=== PATIENT | male | born 1990 | race Caucasian/White ===

== ENCOUNTER 2016-12-11 14:52 | Inpatient (IN) | payer MEDICAID ==
[2016-12-11] MEDS ORDERED: NS 1,000 ML IV ONE ×2 (14:56→15:50)
--- NOTE | 2016-12-11 15:00 | EDPHY ---
H & P HPI/ROS: HPI CHIEF COMPLAINT: Full trauma activation, hanging, CPR HISTORY OF PRESENT ILLNESS: This patient 26-year-old male significant past medical history for depression, daily alcohol use, presents emergency room by EMS as a full trauma alert the patient hung himself. Unclear exactly how long he was hanging it is up to 12 minutes. When EMS arrived they found him pulseless and apneic. They did brief period of CPR he had return of spontaneous circulation and breathing. He now presents emergency room in a cervical collar on a backboard, he smells of alcohol he is alert and oriented he does follow commands he is a GCS 15. He denies pain anywhere. According to EMS patient was hung with a electrical cord. Past Medical History: Depression, alcohol use, lower extremity cellulitis Past Surgical History: No recent surgery Social History: Daily alcohol use Family History: Unknown ROS REVIEW OF SYSTEMS: Review of systems somewhat limited due the patient's clinical presentation intoxicated, and hanging. Exam [place] smells of alcohol, tearful, triage nursing summary reviewed, vital signs reviewed, awake/alert. Eyes normal conjunctivae and sclera, EOMI, PERRLA. HENT Head/neck: Head is atraumatic, neck exam in cervical collar however I do not appreciate any swelling or strangulation Elvis, do not appreciate electrical cord marker redness the neck. No stridor. Trachea nontender. Trachea midline. normal inspection, atraumatic, moist mucus membranes, no epistaxis, neck supple/ no meningismus, no raccoon eyes. Respiratory clear to auscultation bilaterally, normal breath sounds, no respiratory distress, no wheezing. Cardiovascular tachycardic, regular rhythm, no murmur, no edema, distal pulses normal. Gastrointestinal soft, non-tender, no rebound, no guarding, normal bowel sounds, no distension, no pulsatile mass. Genitourinary no CVA tenderness. Musculoskeletal no midline vertebral tenderness, full range of motion, no calf swelling, no tenderness of extremities, no meningismus, good pulses, neurovascularly intact. Skin pink, warm, & dry, no rash, skin atraumatic. Neurologic awake, alert and oriented x 3, AAOx3, moves all 4 extremities equally, motor intact, sensory intact, CN II-XII intact, normal cerebellar, normal vision, normal speech. Psychiatric normal mood/affect. Heme/Lymph/Immune no lymphadenopathy. Differential Diagnosis: Includes but is not limited to in a particular order cardiopulmonary arrest from asphyxiation from hanging, neck injury, a suicide attempt, hypoxic injury, alcohol intoxication, drug intoxication Medical Decision Making: Plan for this patient CT head, CT cervical spine, chest x-ray, full vehicle monitor technician, EKG, drug screen, alcohol level, M1 hold Re-evaluation: CT scan of the head without IV contrast . The results of the study are negative for acute abnormality The study was read by Dr. Godfrey I viewed the images myself on the PACS system. CT scan of the angiogram neck The results of the study are negative for acute vascular injury or tracheal injury or spinal injury. The study was read by Dr. Godfrey . I viewed the images myself on the PACS system. EKG interpretation by me on record in [facility] system. Impression time of EKG 15 18, sinus rhythm rate of 89. No acute ischemic change. 1546: This patient remains hemodynamically stable. In terms of his hanging injury there is no significant neck injury. Patient admitted to the ICU as he did have a cardiopulmonary arrest for 12 minutes. Received CPR. Return of spontaneous circulation. Patient be admitted to the ICU for observation overnight. He is on M1 hold. At this time is hemodynamically stable no acute distress. No significant traumatic injury. Dr. Persaud has agreed to admit the patient Source: Patient, Police, EMS - Personal History Tetanus Vaccine Date: 2011 - Medical/Surgical History Hx Asthma: No Hx Chronic Respiratory Disease: No Hx Diabetes: No Hx Cardiac Disease: No Hx Renal Disease: No Hx Cirrhosis: No Hx Alcoholism: No Hx HIV/AIDS: No Hx Splenectomy or Spleen Trauma: No Other PMH: Hep C. - Social History Smoking Status: Current every day smoker Constitutional: Initial Vital Signs Temperature (C) 36.8 C 12/11/16 16:10 Heart Rate 110 H 12/11/16 16:10 Respiratory Rate 18 12/11/16 16:10 Blood Pressure 148/78 H 12/11/16 16:10 O2 Sat (%) 96 12/11/16 16:10 Allergies/Adverse Reactions: cephalexin monohydrate [From Keflex] Allergy (Severe, Verified 12/11/16 17:00) throat swells Home Medications: Medication Instructions Recorded NK [No Known Home Meds] 12/11/16 Medical Decision Making - Data Points Laboratory Results: Laboratory Results 12/11/16 14:55 12/11/16 14:55 Medications Given: Discontinued Medications Acetaminophen (Tylenol 650/20.3ml Oral Liquid) 650 mg PO Q4HRS PRN PRN Reason: Pain, Mild/Fever, Can Take PO Stop: 06/09/17 16:24 Last Admin: 12/12/16 09:54 Dose: 650 mg Sodium Chloride (Ns) 1,000 mls @ 0 mls/hr IV ONCE ONE; Wide Open PRN Reason: Protocol Stop: 12/11/16 14:57 Last Admin: 12/11/16 14:56 Dose: 1,000 mls Sodium Chloride (Ns) 1,000 mls @ 0 mls/hr IV ONCE ONE PRN Reason: Wide Open Stop: 12/11/16 15:51 Last Admin: 12/11/16 16:06 Dose: 1,000 mls Ibuprofen (Motrin) 800 mg PO Q8HRS PRN PRN Reason: Pain, Breakthrough Stop: 06/09/17 21:59 Last Admin: 12/11/16 21:41 Dose: 800 mg Lorazepam (Ativan) 1 mg PO Q4 PRN PRN Reason: Anxiety, Able to Take PO Stop: 06/09/17 16:27 Last Admin: 12/12/16 15:54 Dose: 1 mg Nicotine (Nicoderm Cq) 21 mg TD DAILY PETE Stop: 06/09/17 17:14 Last Admin: 12/12/16 09:53 Dose: 21 mg Departure - Departure Disposition: [facility] Inpatient Acute Clinical Impression: Cardiopulmonary arrest Hanging Qualifiers: Encounter type: initial encounter Qualified Code(s): T71.164A - Asphyxiation due to hanging, undetermined, initial encounter Condition: Fair
[2016-12-11] MEDS ORDERED: IOPAMIDOL (ISOVUE 370) 100 ML BTL IV ONE (15:05)
[2016-12-11 15:11] LABS: % IMMATURE GRANULYOCYTES 0.3 % (0.0-1.1); ABSOLUTE IMMATURE GRANULOCYTES 0.02 10^3/uL (0.00-0.10); ADD DIFF? NO; ADD MORPH? NO; ADD SCAN? NO; ATYPICAL LYMPHOCYTE FLAG 30 (0-99); FRAGMENT RBC FLAG 0 (0-99); HEMATOCRIT 43.7 % (40.0-51.0); HEMOGLOBIN 15.6 g/dL (13.7-17.5); LEFT SHIFT FLG 0 (0-99); LIPEMIA HEMOLYSIS FLAG 90 (0-99); MEAN CELL HEMOGLOBIN CONCENTR. 35.7 g/dL (32.4-36.7); MEAN CELL VOLUME 92.4 fL (81.5-99.8); MEAN PLATELET VOLUME 9.7 fL (8.7-11.7); PLATELET CLUMPS FLAG 10 (0-99); PLATELET COUNT 182 10^3/uL (150-400); RED BLOOD CELL COUNT 4.73 10^6/uL (4.40-6.38); RED CELL DISTRIBUTION WIDTH 12.1 % (11.5-15.2)
--- NOTE | 2016-12-11 15:20 | CPEKG ---
Heart Rate: 89 RR Interval: 674 P-R Interval: 164 QRSD Interval: 96 QT Interval: 392 QTC Interval: 477 P Davison: 61 QRS Davison: 54 T Wave Davison: 52 EKG Severity - BORDERLINE ECG - EKG Impression: SINUS RHYTHM EKG Impression: BORDERLINE PROLONGED QT INTERVAL Electronically Signed By: Jacek Mckeon 11-Dec-2016 22:45:09
[2016-12-11 15:33] LABS: ANION GAP 16 mEq/L (8-16); CALCIUM 8.9 mg/dL (8.5-10.4); CARBON DIOXIDE 18 mEq/l (22-31); CHLORIDE 112 mEq/L (97-110); CREATININE 0.9 mg/dL (0.7-1.3); ETHANOL SERUM 264 mg/dL (0-10); GLOMERULAR FILTRATION RATE > 60; GLUCOSE 103 mg/dL (70-100); SALICYLATE < 1.0 mg/dL (2.0-20.0); SODIUM 146 mEq/L (134-144)
[2016-12-11 16:13] LABS: COLOR COLORLESS; LEUKOCYTE ESTERASE,URINE NEGATIVE (NEGATIVE); NITRITE,URINE NEGATIVE (NEGATIVE)
[2016-12-11] MEDS ORDERED: ONDANSETRON 4 MG/2 ML VIAL IVP PRN (16:25)
[2016-12-11] MEDS ORDERED: IBUPROFEN 800 MG TAB PO PRN (16:25)
[2016-12-11 16:32] VITALS: O2SAT 96
[2016-12-11] MEDS: LORazepam 1 MG TAB PO PRN ×2 (17:02→20:32)
[2016-12-11] MEDS: NICOTINE 21 MG/24 HR PATCH TD SCH (17:08)
[2016-12-11 18:27] LABS: INR 1.04 (0.83-1.16); PROTIME(PATIENT) 13.5 SEC (12.0-15.0)
[2016-12-11] MEDS: ACETAMINOPHEN 650 MG/20.3 ML UDCUP PO PRN (20:58)
--- NOTE | 2016-12-11 21:58 | GCON ---
[f rep st] CONSULTATION REASON FOR ADMISSION: Hanging. HISTORY OF PRESENT ILLNESS: A 26-year-old, healthy male, found hanging from an electrical cord over the [place] [address] this afternoon. He was allegedly down for approximately 12 minutes before E MS was able to relieve him from his noose. He was initially noted to be asystolic. He received 12 mechanical chest compressions with return of spontaneous rhythm. The patient was brought [facility] in full spinal precautions. The patient smells of alcohol. He is conversive. He is mo ving all 4 extremities well. PAST MEDICAL HISTORY: Denies. PAST SURGICAL HISTORY: Denies. MEDICATIONS: Denies. ALLERGIES: Keflex. SOCIAL HISTORY: Unclear. FAMILY HISTORY: Unclear. REVIEW OF SYSTEMS: Unclear. PHYSICAL EXAMINATION: PRIMARY SURVEY: ABC intact. SECONDARY SURVEY: Pupils are equally round and reactive to light and accommodation. Extraocular muscles are intact. Pupils are noninjected. Rig ht tympanic membrane clear with external canal hyperemia. Normal left tympanic membrane. No facial trauma, step-offs, or deformities. NECK: Cervical collar in place. Trachea midline without crepi tus. No notable hanging associated abrasions or lacerations. 2+ carotid pulses without bruits. HE ART: Regular without murmurs. LUNGS: Clear bilaterally. ABDOMEN: Soft, nontender. CHEST: Ches t wall is nontender. PELVIS: Nontender. EXTREMITIES: Bilateral upper and lower extremities with multiple superficial abrasions in various stages of healing. BACK: Thoracic and lumbar spines nont myrna. NEURO: Patient is moving all extremities well. He is conversive. He smells of alcohol. H e is answering questions appropriately. LABORATORY AND X-RAY DATA: CT head: Without acute injury. CT neck: Normal carotid arteries. Nor mal cervical spine. Chest x-ray: Right apical or pleural parenchymal opacity. No pneumothorax not ed. No mediastinal widening. A 12-lead EKG with normal sinus rhythm and approximately 80 beats per minute. IMPRESSION: 1. Self-inflicted hanging. 2. Alcohol intoxication. 3. Momentary cardiac arrest. PLAN: 1. Patient is being admitted for overnight observation with an M1 hold. The patient's cervical spi ne was clinically cleared. 2. The patient will remain on telemetry for the evening given his cardiopulmonary arrest. Assuming no further overnight events develop, the patient will be cleared for further psychiatric treatment as appropriate. The patient's mother has been notified of the injuries. Care plan was reviewed wit h emergency room physician customer service correspondence clerk. /[id number]/MODL
[2016-12-12] MEDS ORDERED: CALCIUM CARBONATE 500 MG CHEWABLE TAB PO ONE (00:26)
[2016-12-12] MEDS: LORazepam 1 MG TAB PO PRN ×4 (01:27→15:54)
[2016-12-12] MEDS: NICOTINE 21 MG/24 HR PATCH TD SCH (09:53)
[2016-12-12] MEDS: ACETAMINOPHEN 650 MG/20.3 ML UDCUP PO PRN (09:54)
--- NOTE | 2016-12-12 14:04 | GCON ---
[f rep st] CONSULTATION PULMONARY/CRITICAL CARE CONSULTATION. DATE OF CONSULTATION: 12/11/2016 REFERRING PHYSICIAN: Madi Persaud MD REASON FOR REFERRAL: Evaluation and management of hyponatremia and metabolic acidosis status post h anging. HISTORY: Patient is a 26-year-old, healthy male, who was found hanging from an electrical cord near [place] this afternoon. He was apparently down for several minutes before EMS was able to bring him down. He was initially asystolic and received a brief course of chest compressions wit h return of spontaneous rhythm. He was brought to the emergency department where he was alert and c onversive and he currently has some mild neck discomfort but denies any other symptoms. PAST MEDICAL HISTORY: 1. Depression. 2. Alcoholism. MEDICATIONS: None. ALLERGIES: Keflex. SOCIAL HISTORY: Daily alcohol use. FAMILY HISTORY: Unknown. REVIEW OF SYSTEMS: A 10-point review of systems adds nothing to the history of present illness. PHYSICAL EXAMINATION: GENERAL: The patient is awake, alert, in no acute distress. VITAL SIGNS: B lood pressure is 148/78 with a heart rate of 110. He is afebrile. Oxygen saturations are 96% on ro om air. HEENT: Normocephalic and atraumatic. No icterus. NECK: He has some erythema around his n venita, more so on the right. He has no palpable masses or hematoma and has just mild tenderness. His trachea is midline with a grossly intact larynx. There was no adenopathy. CHEST: Clear to auscult ation. CARDIAC: Regular rate and rhythm without murmur. ABDOMEN: Soft, nontender. Bowel sounds ar e present. EXTREMITIES: No clubbing, cyanosis, or edema. NEURO: The patient is awake, alert, and oriented. He has no gross sensory or motor deficits. LABORATORY: Sodium is 146 down from 147, carbon dioxide level is 18, glucose is 113, CBC is normal. Alcohol level is 264. A chest x-ray shows a faint right apical density, images reviewed. A CT of the neck shows no evidence of any vascular damage. ASSESSMENT: 1. Status post hanging. The patient had a brief cardiac arrest but has now recovered with stable vi summer signs. 2. Hyponatremia. This is mild and could be related to dehydration. 3. Metabolic acidosis. This is likely due to the patient's brief arrest. 4. Pulmonary infiltrate. This is quite mild and is not associated with significant hypoxemia. RECOMMENDATIONS: 1. Continue IV fluids, which will likely help to correct his hyponatremia and metabolic acidosis. 2. Follow infiltrate with a chest x-ray prior to discharge. /[id number]/MODL
[2016-12-12] MEDS ORDERED: NICOTINE 21 MG/24 HR PATCH TD SCH (17:00)
[2016-12-12 18:14] VITALS: BP 132/63; PULSE 71; RESP 18; TEMP 98.6
--- NOTE | 2016-12-13 09:35 | TRAUMAPN ---
Assessment/Plan: 26-year-old male hospital day 2. Status post near hanging This morning continues to do well and remains hemodynamically stable. Other than some soft tissue pain around the neck, the patient has no complaints. On tertiary exam, I see no other signs of injury including no swelling and/or abrasions even to the neck area and no petechial hemorrhages. At this point time, the patient is medically cleared for psych evaluation and transfer if necessary. Subjective: Other than neck pain, patient has no complaints Objective: Vital Signs Temp Pulse Resp BP Pulse Ox 37.0 C 71 18 132/63 H 96 12/12/16 17:48 12/12/16 17:48 12/12/16 17:48 12/12/16 17:48 12/12/16 17:48 12/12/16 12/13/16 12/14/16 05:59 05:59 05:59 Intake Total 5120 1000 Output Total 400 Balance 4720 1000 PT 13.5 SEC (12.0-15.0) 12/11/16 14:55 INR 1.04 (0.83-1.16) 12/11/16 14:55 Physical Exam - Physical Exam General Appearance: WD/WN, alert, no apparent distress EENT: PERRL/EOMI, normal ENT inspection, pharynx normal, TMs normal Neck: non-tender, full range of motion, supple, normal inspection Respiratory: chest non-tender, lungs clear, normal breath sounds Cardiac/Chest: normal peripheral pulses, regular rate, rhythm Abdomen: normal bowel sounds, non-tender, soft Back: Normal inspection Skin: normal color, warm/dry Lymphatic: no adenopathy Neuro/Psych: no motor/sensory deficits, alert, normal mood/affect, oriented x 3 , other (Flat affect)
== END 2016-12-12 18:47 | DRG 922 ==
LOC: EDUNIT# → EEVIPCON 14:52 → F2N 16:16
PROVIDERS: ADMIT Surgery; ATTEND Surgery
DX: T71.162A Asphyxiation due to hanging, intentional self-harm, initial encounter (principal); F10.129 Alcohol abuse with intoxication, unspecified; I46.9 Cardiac arrest, cause unspecified; E87.1 Hypo-osmolality and hyponatremia; E87.2 Acidosis
CPT/HCPCS: 80305; 82947-QW; G0480; Q9967

== ENCOUNTER 2016-12-12 19:10 | Inpatient (IN) | payer MEDICAID ==
[2016-12-12] MEDS ORDERED: MAGNESIUM HYDROXIDE 30 ML UDCUP PO PRN (20:11)
[2016-12-12] MEDS ORDERED: ACETAMINOPHEN 325 MG TAB PO PRN (20:11)
[2016-12-12] MEDS ORDERED: MAG HYDROX/AL HYDROX/SIMETH 30 ML UDCUP PO PRN (20:11)
[2016-12-12] MEDS: LORazepam 0.5 MG TAB PO PRN (20:22)
[2016-12-13] MEDS: LORazepam 0.5 MG TAB PO PRN ×3 (08:16→21:10)
[2016-12-13] MEDS: NICOTINE POLACRILEX 2 MG GUM B PRN ×5 (12:09→21:10)
--- NOTE | 2016-12-13 15:01 | GCON ---
[f rep st] CONSULTATION INTERNAL MEDICINE CONSULTATION DATE OF CONSULTATION: 12/13/2016 REASON FOR CONSULTATION: Medical clearance for inpatient psychiatric treatment. HISTORY OF PRESENT ILLNESS: This is a 26-year-old male who was actually admitted to [facility] under the trauma service 12/11 and 12/12. Apparently, he was found hanging from a tree an d had a brief cardiac arrest. He was found to be asystolic initially and was revived with 12 chest compressions. He also was intoxicated with alcohol. He was watched overnight in the ICU, had no co mplications and was sent to inpatient behavioral rehab. The patient is currently feeling well overa ll. He does have a little bit of neck pain. He denies any palpitations, chest pain, shortness of b reath. REVIEW OF SYSTEMS: 10-point review of systems was obtained and other than stated above was negative . PAST MEDICAL HISTORY: None. MEDICATIONS: Reviewed. SOCIAL HISTORY: He does drink alcohol. FAMILY HISTORY: Reviewed. Noncontributory. PHYSICAL EXAMINATION: VITAL SIGNS: Afebrile. Blood pressure is 127/85. Heart rate 91. Oxygen sa turation is 98% in room air. GENERAL: Patient is in no apparent distress. HEENT: Nonicteric scle nandini. Extraocular muscles intact. Moist mucous membranes. NECK: Supple. No thyromegaly. LUNGS: Good effort. Clear to auscultation bilaterally. CARDIOVASCULAR: Regular rate and rhythm. No mur murs, rubs, or gallops. ABDOMEN: Positive bowel sounds. Soft, nontender, and nondistended. No he patosplenomegaly. EXTREMITIES: No clubbing, cyanosis, or edema. SKIN: Without rash. Warm, dry, intact. NEURO: Alert and oriented x3. Moving all 4 extremities equally. PSYCH: Normal mood. Fl at affect. LABORATORIES: CBC yesterday was normal. Chemistry did show a slight elevation of his sodium at 146 , but that was immediately after CPR. Tox screen was positive for alcohol. ASSESSMENT: This is a 26-year-old male admitted for a suicide attempt. PLAN: 1. Suicide attempt due to hanging, with a brief cardiac arrest. Patient was monitored overnight an d he is doing well. There is no further intervention to be done. 2. He is medically cleared to be treated at [facility]. /[id number]/MODL
--- NOTE | 2016-12-13 21:09 | SOAPPROG ---
SOAP Progress Note Assessment/Plan: Assessment: Plan: Objective: Vital Signs Temp Pulse Resp BP Pulse Ox 36.4 C 91 16 127/85 H 98 12/13/16 06:20 12/13/16 06:20 12/13/16 06:20 12/13/16 06:20 12/13/16 06:20 ICD10 Worksheet Patient Problems: Problems Problem Status Onset Alcohol dependence Active Depression - Depressive disorder Active Cardiopulmonary arrest Acute Cellulitis Acute Hanging Acute
[2016-12-13] MEDS: NICOTINE 21 MG/24 HR PATCH TD SCH (21:57)
--- NOTE | 2016-12-14 00:02 | BAPA ---
[f rep st] ADMISSION PSYCHIATRIC ASSESSMENT DATE OF SERVICE: 12/13/2016 CHIEF COMPLAINT: "[place]I guess they cut me down." HISTORY OF PRESENT ILLNESS: The patient is a 26-year-old, single, male, initially admitted to [facility] ICU trauma service on 12/11/16 following a near- lethal suicide attempt by hanging. Apparently hikers found him [place] and contacted EMS. Duration of hanging was unclear but he was reportedly initially noted to be asystolic and have suffered a brief cardiac arrest, and was revived with 12 chest compressions. He was also noted intoxicated with alcohol with alcohol level of 0.256. He was monitored overnight in the ICU, had no complications, and was admitted to inpatient psychiatry on 12/12/2016 on a 72 -hour mental health hold after medical clearance and evaluation by [facility] in the ICU. Initial psychiatric evaluation in ICU indicated the patient had recently become homeless and unemployed, having been evicted from [facility] in [place], [place] 6 days ago due to not paying rent. He had also resumed drinking. Thereafter he returned to [place] and had been living on the streets. Family attempted to not be enabling again, as such patterns of behavior had occurred before. Upon collateral interview, mother and brother stated patient left a well-written suicide note stating very clearly that he was planning to , that he was sorry, and that he loves them. Family also stated the patient was initially upset that he did not . They are very relieved he did not . Apparently patient wrote the suicide note while sober, and researched ways to kill himself. He reported feeling suicidal for a couple of days prior to attempt, but waited until he received his last paycheck, needing money to purchase what he needed for the suicide attempt, and wanted to spend his last day enjoying the day including going swimming. He admits drinking significantly more than usual, about 10 beers...because I knew what I was going to do" and didn't want to feel any discomfort. He states he thought [place]. Patient reports that initially when coming to after the hanging attempt that his first thoughts were "what the F*$%is happening," as he noted commotion around him as he was cut down, then reported being in/out of consciousness, but later felt "excited that I wasn't ....the whole thing was traumatic....I was happy to see my mom and that I didn't ." Although mother and brother stated that patient initially told them that he was upset that he did not , patient.reports he does not feel that way now and is glad to be alive. He hopes to have his mother be involved with his discharge plan and hopes to live with her after discharge. He would like to get reconnected with [facility], but is concerned that he will not be able to see his same previous providers, and does feel frustrated that he has to relate his whole story and history again to several people each time he gets reconnected with [facility]. Patient admits having had problems with alcohol, but does not feel ready to completely abstain, noting that drinking helps his "anxiety, socialization, mood...it's something I enjoy doing", and he feels it would be difficult to maintain long-term sobriety. He reports most recently, sobriety was for 1 month after taking Vivitrol IM several months ago from [facility]. Prior to this, he reports 5 months sobriety at a residential treatment program in [place] "which was a terrible program". He does report chronic depression since age 16, on and off, as well as alcohol use. He does feel that his depression and anxiety are improved when he drinks alcohol. He feels his "primary issue is depression," but, then seems to contradict and reports, "I don't normally feel depressed, I think it's situational," and that he doesn't really think he wants to restart on medications for mood or sobriety. Feels he's been several times through same cycle and nothing seems to be helpful. He admits having trouble managing money , which contributes to poor choices and nonpayment of rent, eventually resulting in housing loss and homelessness, as recently. 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 Ideally, would like to travel with work. Regarding alcohol, "I don't want to give that up...it 's how I lived my life for the last 10 years, it's fun, it helps me feel happier and less anxious." He denied any clear history of manic symptoms and denied history of decreased need for sleep. Denied history of periods of elevated mood or irritability associated with any decreased need for sleep. Denied racing thoughts, rather periods of perseverative thoughts but not racing. Recently sleep had been increased from midnight to 2 p.m. and working from 3 p.m. to 11 p.m. This cycle has also not been very conducive for feeling satisfied with his life. Patient denied any psychotic symptoms or history of such. PAST PSYCHIATRIC HISTORY: Patient reports a long history of depression on and off since age 16. Most recently he was in treatment with [facility], last prescriptions written in 06/2016. He has received inpatient treatment for alcoholism as well as depression, most recent psychiatric hospitalization at age 21 following self-inflicted wrist laceration. Also history of inpatient psych following overdose on Aspirin medication at around age 16 and 17, both requiring medical intervention prior to psychiatric treatment. Patient is noted to have multiple old horizontal scars on bilateral forearms, he states these were from a single suicide attempt by wrist lacerations. States his longest psychiatric hospitalization was at age 16 for 1 month at [facility], "after the state remanded me from my mom's control." He reports having been on many different psychiatric medications, including mood stabilizers, antidepressants, and also antipsychotics notably when younger for "acting out." He feels that since he has experienced being depressed with suicidal ideations, both on and off medications, presently he is not sure how helpful they would be to resume. Primarily he has been on/off Lexapro over the past 10 years, more recently with added Abilify and Vivitrol IM. Also has been on/off [place] and states he has been told he may have bipolar, but he is not convinced of this. He was unable to state which other previous psychiatric medications he had taken , seeming unfamiliar with several other SSRIs when listed, and did not think he had tried many others. He reported significant side effects, apparently akathisia, when Abilify 10 mg was added to Lexapro 20 mg, when in recent residential treatment program in [place] (thinks from approximately November 2015 to April 2016), and this was discontinued after 2 days. Has tolerated lower dose of 2mg he took at [facility]. He admits being off all psychiatric medications for the past at least 2-3 months. SAFETY HISTORY: Status post suicide attempt by hanging with lethal intent as noted in HPI. Previously reports history of suicide attempts by overdose on aspirin, and cutting on self as noted above. No reported history of harm to others. SUBSTANCE USE HISTORY: Notable for alcohol, also history of cocaine. Patient had been at [facility] for approximately 3 months. Prior to this, he was in a residential treatment program in [place] for several months in 2016. Patient reported drinking 4-5 beers per day and weekly cocaine prior to living at [facility]. He was then sober for 1 month on Vivitrol, then resumed alcohol but less, up to 3 beers/day despite residing in sober living environment. He reports brief periods of sobriety for up to several months, but longest period was 5-6 months last year while in a residential facility in [place] in 2016. He denied any other substance use. History of Vivitrol 380 mg IM helped him maintaining sobriety from alcohol for a month when he took this. He admitted that he did try to drink on it in the past. Did admit history of trying IV drugs in remote past, "which is probably how I got the hepatitis C." None recently other than as noted. PAST MEDICAL HISTORY: Recent hanging attempt with brief cardiac arrest as noted in HPI. ALLERGIES: Cephalexin. SOCIAL HISTORY: Patient is single, never . No children. Currently homeless after evicted from [facility] 1 week ago due to rent nonpayment. Unemployed, states because he left recent job due to not having anywhere to live, then returned to the streets of [place] where he was familiar with services and family lived. Reports his only support system is his mother and brother. Patient completed high school. No history of long-term employment , longest approximately 6 months. Also, longest stable living in recent past had been 6 months. Patient denied any spiritual or yazidism preferences. No history reported. 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 FAMILY PSYCHIATRIC HISTORY: Mother with history of depression. Father when patient was age 5 from a hang-gliding accident. Maternal grandfather committed suicide with carbon monoxide and may have had PTSD. CURRENT MEDICATIONS: No current medications. Most recently per [facility], last prescribed June 2016 include Abilify 2 mg daily, Lexapro 10 mg daily, Vivitrol 380 mg IM q.28 days. MENTAL STATUS EXAM: On admission, patient was casually dressed, calm, cooperative, with fair to good eye contact. Low to normal volume speech articulate. No pressured speech. Mood was depressed although patient felt it was situational, and did admit being glad he was alive. Affect was controlled, restricted. He denied current suicidal ideation. He denied any thoughts of harming others nor any such history. He denied any psychotic symptoms of auditory or visual hallucinations, and there was no evidence of formal thought disorder. Responses were linear, logical, and goal directed. Insight was fair. Judgment was fair. General knowledge seemed average. He was alert and oriented x3. IMPRESSION: A 26-year-old, single, male, recently unemployed and homeless, on 72-hour mental health hold following serious suicide attempt with intent to . Patient admits long history of depression and substance use, also recurrent noncompliance with outpatient psychiatric treatment and sobriety. He has had 2 suicide attempts previously, has a family history of suicide and depression, limited insight, with ambivalence to maintaining sobriety and ambivalence to resuming psychiatric medication treatment. Patient is felt to be high risk and in current need of psychiatric hospitalization and treatment. He does feel support from family, does express interest in resuming treatment for mental health, but mainly feels just therapy would be helpful. After discussion and education on history and risks, patient did agree to a trial of different medication for his depression and reported anxiety, and is willing to reconsider resuming Vivitrol or other medication for alcohol dependence. DIAGNOSES: 1. Major depressive disorder, recurrent, severe, status post near lethal suicide attempt by hanging. Rule out substance-induced depressed mood. 2. Alcohol use disorder, severe. 3. Stimulant (cocaine) use disorder, unspecified. 4. Numerous psychosocial stressors including, homelessness, unemployment, limited social support, financial. PLAN: Will continue on [facility] [address] for inpatient psychiatric treatment. Continue 72-hour mental health hold. Evaluate for short-term certification given inconsistent past psychiatric followup and compliance, even if patient agrees to sign in voluntarily, but would discuss with [facility]. Discussed medication options. Patient not interested in restarting Lexapro as has been on and off this for many years and not feeling this has been helpful. No clear history for bipolar mood disorder. Will start different SSRI with patient consent. Discussed options, risks, and benefits, and patient agreed to Zoloft 25 mg. Will plan increase thereafter to 50 mg and monitor. No indication for any antipsychotic nor to restart Abilify. Patient would like least medications as possible, if any. Continue with p.r.n. availability of lorazepam. Will initiate CIWA, although patient currently denying any tremors, and no evidence of physical withdrawal, but does report anxiety. Will follow vital signs more closely. Also offer hydroxyzine 25-50 mg p.o. q.4-6 hours p.r.n. anxiety. Patient willing to reconsider starting Vivitrol IM for alcohol use disorder. Will discuss further with the team during the week. Patient would very much like mother to be involved in his treatment and disposition planning for support. Continue to educate on substance use, risks of alcohol use, and effects on mood. Patient indicating ambivalence regarding sustained abstinence. Continue on suicide precautions, although would consider discontinuing is maintains safety since reporting no longer feeling suicidal and is feeling glad to be alive. Monitor for any subtle cognitive impairment complaints following a brief cardiac arrest related to hanging. Encourage group participation and attendance. Coordinate outpatient followup with [facility]. Patient did express interest in having his mother be his payee, since he volunteered that money management issues are problematic for him. /[id number]/MODL /[id number]/MODL [facility]
[2016-12-14] MEDS ORDERED: chlordiazePOXIDE 25 MG CAP PO PRN (00:39)
--- NOTE | 2016-12-14 01:47 | BAPA ---
[f rep st] Duplicate /[id number]/MODL MTDD
[2016-12-14] MEDS: NICOTINE 21 MG/24 HR PATCH TD SCH (09:15)
[2016-12-14] MEDS: SERTRALINE HCL 25 MG TAB PO SCH (09:15)
[2016-12-14] MEDS: LORazepam 0.5 MG TAB PO PRN ×3 (09:15→21:39)
[2016-12-14] MEDS: NICOTINE POLACRILEX 2 MG GUM B PRN ×5 (11:31→21:39)
[2016-12-14] MEDS: hydrOXYzine HCL 25 MG TAB PO PRN ×2 (11:31→17:41)
--- NOTE | 2016-12-14 15:20 | SOAPPROG ---
SOAP Progress Note Assessment/Plan: Assessment: Plan: 12/14/16 15:12 Plan: 1. Continue patient on Zoloft 25mg daily which was started on admission by Dr. Gagnon. Patient denies any SE's is tolerating medication. 2. Patient denies any SI/HI today, states he no longer feels hopeless and wants to stay alive. 3. Patient plans to move in with his MOC after discharge. 4. Psych MD recommended IOP level of care to address both substance use disorder as well as mental health problems, but patient says that is "too many" groups for him. He prefers to meet "once or twice a week" with an individual therapist after discharge. 5. Will change legal status to [facility]. 6. CC to arrange family meeting with patient, MOC, AOC tomorrow to discuss aftercare plan. Subjective: Met with patient, reviewed chart and discussed with staff. Patient presents with bright affect, reports his mood is "a lot better." He claims that he feels "a lot different" today and is no longer feeling helpless or hopeless. He denies any thoughts, plan or intent to hurt himself or anyone else. He says that the trigger for his suicide attempt was b/c "I lost my house and my job" and he says he didn't think his family wanted to help him. He claims that he had "no support from my family." Since his suicide attempt, however, patient states that his MOC is "willing to help me however she can." She has also agreed to let the patient live with her, something patient says she was not willing to do in past. He says his BOC will also provider support. Patient says he attempted to hang himself b/c he thought "I didn't have any options," but now he says his family is going to "help me get through this." Patient says he was living at [facility] for past 6 months, but he relapsed on alcohol. He also admits to using cocaine a couple times in the past month. When MD asked if patient was willing to do IOP or similar treatment for his drug dependence, he said he didn't want to go to groups, but would like to see an individual therapist. He denies any AH/VH, no evidence of psychosis. He denies any thoughts , plan or intent to hurt himself or anyone else. Objective: Vital Signs Temp Pulse Resp BP Pulse Ox 36.4 C 52 L 14 127/66 H 99 12/14/16 06:29 12/14/16 06:29 12/14/16 06:29 12/14/16 06:29 12/14/16 06:29 MSE: Calm, cooperative, lying in bed wearing shirts and T-shirt. Affect: Bright Mood: "A lot better" TP: Linear, goal-directed TC: No AH/VH, paranoia or delusions, no SI/HI Insight/Judgment: Poor/Poor - Time Spent With Patient Time Spent With Patient: 25" - Pending Discharge Pending Discharge Within 24 Hours: No ICD10 Worksheet Patient Problems: Problems Problem Status Onset Alcohol dependence Active Depression - Depressive disorder Active Cardiopulmonary arrest Acute Cellulitis Acute Hanging Acute
[2016-12-15] MEDS: hydrOXYzine HCL 25 MG TAB PO PRN ×3 (02:35→21:19)
[2016-12-15] MEDS: NICOTINE POLACRILEX 2 MG GUM B PRN ×7 (02:35→20:19)
[2016-12-15] MEDS: NICOTINE 21 MG/24 HR PATCH TD SCH (07:37)
[2016-12-15] MEDS: LORazepam 0.5 MG TAB PO PRN ×3 (07:39→20:18)
[2016-12-15] MEDS: SERTRALINE HCL 25 MG TAB PO SCH (08:43)
--- NOTE | 2016-12-15 14:38 | SOAPPROG ---
SOAP Progress Note Assessment/Plan: Assessment: Plan: 12/14/16 15:12 Plan: 1. Continue patient on Zoloft 25mg daily which was started on admission by Dr. Gagnon. Patient denies any SE's is tolerating medication. 2. Patient denies any SI/HI today, states he no longer feels hopeless and wants to stay alive. 3. Patient plans to move in with his MOC after discharge. 4. Psych MD recommended IOP level of care to address both substance use disorder as well as mental health problems, but patient says that is "too many" groups for him. He prefers to meet "once or twice a week" with an individual therapist after discharge. 5. Will change legal status to [facility]. 6. CC to arrange family meeting with patient, MOC, AOC tomorrow to discuss aftercare plan. 12/15/16 14:34 Plan: 1. Patient has agreed to residential tx b/c his MOC is very worried about his safety and she is willing to pay out of pocket for this level of care. CC provided MOC and patient with brochures of several residential dual dx facilities. MOC will start calling to find a suitable placement. 2. Patient states he has no thoughts, plan or intent to harm himself and will be safe when he discharges from hospital. 3. CC to assist family with identifying a suitable placement and formulating a transition plan if patient is not able to go directly from hospital to residential program. MD suggested family consider interim IOP if needed. 4. Likely to d/c or Wednesday. Subjective: Met with patient and discussed with staff. MD held family meeting with patient, patient's MOC, MO's friend who works in medical field, Norberto (CC), Michelle (RN), and Miranda, (P liaison). Patient stated he would prefer to see a psych MD and individual therapist, but MOC felt strongly that patient would be under "too much pressure" if he returned to his normal life and might not be safe living at her house with limited supervision. She said she really wanted him to be in a residential facility where he "didn't have to worry" about the stressors of daily life and would receive intensive treatment. Patient said his MOC was "probably right" and if that's what she wanted him to do, then he would agree to it. Patient repeated that he was no longer feeling hopeless and had no thoughts, plan or intent to hurt himself. He says he felt before his SA that his family "didn't care about me," but now he knew "they did" and was much more hopeful. MD discussed various levels of care and treatment options at length, including the pros/cons of residential versus IOP and outpatient. [facility] would be able to offer treatment through [facility] or their TRT program. MOC specifically said she didn't want Ricky going to [facility], but was open to hearing more about TRT. Norberto provided [facility] with brochures for several different residential facilities in [place], [place] and [place]. [facility] said she would contact them today and call Norberto tomorrow with an update. Objective: Vital Signs Temp Pulse Resp BP Pulse Ox 36.3 C 66 18 123/76 H 97 12/15/16 06:00 12/15/16 06:00 12/15/16 06:00 12/15/16 06:00 12/15/16 06:00 MSE: Tall, dressed in shorts and T-shirt, cooperative, quiet. Affect: Euthymic Mood: "Better" TP: Linear, goal-directed TC: Denies AH/VH, paranoia, delusions, SI/HI Insight/Judgment: Poor/Poor - Time Spent With Patient Time Spent With Patient: 60" - Pending Discharge Pending Discharge Within 24 Hours: No ICD10 Worksheet Patient Problems: Problems Problem Status Onset Alcohol dependence Active Depression - Depressive disorder Active Cardiopulmonary arrest Acute Cellulitis Acute Hanging Acute
[2016-12-16] MEDS: SERTRALINE HCL 25 MG TAB PO SCH (08:12)
[2016-12-16] MEDS: LORazepam 0.5 MG TAB PO PRN ×2 (08:12→15:34)
[2016-12-16] MEDS: NICOTINE 21 MG/24 HR PATCH TD SCH (08:13)
[2016-12-16] MEDS: NICOTINE POLACRILEX 2 MG GUM B PRN ×6 (08:14→19:08)
[2016-12-16] MEDS: hydrOXYzine HCL 25 MG TAB PO PRN ×3 (11:21→20:43)
--- NOTE | 2016-12-16 12:18 | SOAPPROG ---
SOAP Progress Note Assessment/Plan: Assessment: Plan: 12/14/16 15:12 Plan: 1. Continue patient on Zoloft 25mg daily which was started on admission by Dr. Gagnon. Patient denies any SE's is tolerating medication. 2. Patient denies any SI/HI today, states he no longer feels hopeless and wants to stay alive. 3. Patient plans to move in with his MOC after discharge. 4. Psych MD recommended IOP level of care to address both substance use disorder as well as mental health problems, but patient says that is "too many" groups for him. He prefers to meet "once or twice a week" with an individual therapist after discharge. 5. Will change legal status to [facility]. 6. CC to arrange family meeting with patient, MOC, AOC tomorrow to discuss aftercare plan. 12/15/16 14:34 Plan: 1. Patient has agreed to residential tx b/c his MOC is very worried about his safety and she is willing to pay out of pocket for this level of care. CC provided MOC and patient with brochures of several residential dual dx facilities. MOC will start calling to find a suitable placement. 2. Patient states he has no thoughts, plan or intent to harm himself and will be safe when he discharges from hospital. 3. CC to assist family with identifying a suitable placement and formulating a transition plan if patient is not able to go directly from hospital to residential program. MD suggested family consider interim IOP if needed. 4. Likely to d/c or Wednesday. 12/16/16 12:12 Plan: 1. Patient says he spoke to his MOC last night and she hasn't found any residential placements that she can afford. Therefore, patient and his MOC agreed that IOP might be more appropriate for patient at this time. 2. CC will meet with MOC today to discuss both residential and IOP options. 3. Will d/c CIWA as patient is not reporting any s/s of w/d and not scoring on CIWA protocol. Also his vital signs have been stable. 4. Likely to d/c by Wednesday. Subjective: Met with patient and discussed with staff. Patient is lying in bed dressed in shorts and T-shirt. He got up to go to breakfast, but has not participated in any groups or milieu activities since admission. He stays in his room most of the day. Patient says he feels "tired" from "tossing and turning" last night, but staff report he slept 9hrs. He says his mood is "good" and he feels optimistic and hopeful about his future. He reports talking to his MOC last night. She visited a residential program and called several by phone, but told patient that she can't really afford any of the programs she's checked into so far. Patient says he and his MOC agreed that IOP might be the most appropriate treatment option at this time. Patient says, "I'm completely fine doing IOP." He denies any thoughts, plan or intent to harm himself or others. Objective: Vital Signs Temp Pulse Resp BP Pulse Ox 36.3 C 52 L 14 122/71 H 97 12/16/16 06:07 12/16/16 06:07 12/16/16 06:07 12/16/16 06:07 12/16/16 06:07 MSE: Dressed in shorts, T-shirt, lying in bed. Affect: Euthymic Mood: "Good" TP: Linear, goal-directed TC: Denies any AH/VH, no evidence of paranoid or delusions, no SI/HI Insight/Judgment: Fair/Fair - Time Spent With Patient Time Spent With Patient: 20" - Pending Discharge Pending Discharge Within 24 Hours: No ICD10 Worksheet Patient Problems: Problems Problem Status Onset Alcohol dependence Active Depression - Depressive disorder Active Cardiopulmonary arrest Acute Cellulitis Acute Hanging Acute
[2016-12-16] MEDS ORDERED: IBUPROFEN 200 MG TAB PO PRN (18:15)
[2016-12-16] MEDS ORDERED: chlordiazePOXIDE 25 MG CAP PO PRN (18:15)
[2016-12-16] MEDS ORDERED: PROMETHAZINE HCL 25 MG TAB PO PRN (18:15)
[2016-12-16] MEDS ORDERED: PROMETHAZINE HCL 25 MG SUPPR PR PRN (18:15)
[2016-12-16] MEDS: MELATONIN 3 MG TAB PO PRN (20:39)
[2016-12-17] MEDS: NICOTINE POLACRILEX 2 MG GUM B PRN ×8 (02:57→20:06)
[2016-12-17] MEDS: hydrOXYzine HCL 25 MG TAB PO PRN ×4 (02:57→20:05)
[2016-12-17] MEDS: MULTIVITAMINS 1 EACH TAB PO SCH (08:28)
[2016-12-17] MEDS: FOLIC ACID 1 MG TAB PO SCH (08:29)
[2016-12-17] MEDS: SERTRALINE HCL 25 MG TAB PO SCH (08:29)
[2016-12-17] MEDS: THIAMINE HCL 100 MG TAB PO SCH (08:51)
[2016-12-17] MEDS: NICOTINE 21 MG/24 HR PATCH TD SCH (08:52)
--- NOTE | 2016-12-17 14:05 | SOAPPROG ---
SOAP Progress Note Assessment/Plan: Assessment: Plan: 12/14/16 15:12 Plan: 1. Continue patient on Zoloft 25mg daily which was started on admission by Dr. Gagnon. Patient denies any SE's is tolerating medication. 2. Patient denies any SI/HI today, states he no longer feels hopeless and wants to stay alive. 3. Patient plans to move in with his MOC after discharge. 4. Psych MD recommended IOP level of care to address both substance use disorder as well as mental health problems, but patient says that is "too many" groups for him. He prefers to meet "once or twice a week" with an individual therapist after discharge. 5. Will change legal status to [facility]. 6. CC to arrange family meeting with patient, MOC, AOC tomorrow to discuss aftercare plan. 12/15/16 14:34 Plan: 1. Patient has agreed to residential tx b/c his MOC is very worried about his safety and she is willing to pay out of pocket for this level of care. CC provided MOC and patient with brochures of several residential dual dx facilities. MOC will start calling to find a suitable placement. 2. Patient states he has no thoughts, plan or intent to harm himself and will be safe when he discharges from hospital. 3. CC to assist family with identifying a suitable placement and formulating a transition plan if patient is not able to go directly from hospital to residential program. MD suggested family consider interim IOP if needed. 4. Likely to d/c or Wednesday. 12/16/16 12:12 Plan: 1. Patient says he spoke to his MOC last night and she hasn't found any residential placements that she can afford. Therefore, patient and his MOC agreed that IOP might be more appropriate for patient at this time. 2. CC will meet with MOC today to discuss both residential and IOP options. 3. Will d/c CIWA as patient is not reporting any s/s of w/d and not scoring on CIWA protocol. Also his vital signs have been stable. 4. Likely to d/c by Wednesday. 12/17/16 13:54 Plan: 1. Met with patient, MOC, MOC's friend, with RN, Michelle, present. MOC says they were discussing most appropriate tx options for patient prior to MD and RN entering the meeting. Patient and MOC are leaning toward doing some type of IOP upon discharge while patient lives at home with MOC. MOC's friend had questions about drug monitoring while outpatient. MD answered family's questions, but encouraged them to speak directly with whatever program they were interested in as each program has their own policies and treatment protocols. MOC said she would do this. 2. CC will contact MOC later today to discuss EOP option through P. 3. MD explained at length the reasons for change of medication last night. MD reviewed patient's use of PRN meds for anxiety, since he reported to charge nurse on evening shift that his anxiety was getting worse "because of this place " and asking for more frequent dosing of Ativan. MD explained he was concerned about use of PRN for several reasons: 1) Risk that PRN benzo was masking underlying w/d sxs and CIWA was not accurate because of PRN benzo use, 2) Risk of rebound anxiety d/t use of short-acting benzo, and 3) risk of cross-over addiction if patient continues to rely on benzos to manage his anxiety. MD discussed in detail evidence-based, non-pharmacologic interventions to help manage anxiety, especially MBSR, CBT, neurofeedback, breathing/relaxation exercises, yoga, exercise, guided imagery, visualization (most of these tools are available to some degree on the inpatient unit, and are discussed in treatment groups which patient has refused to attend). MD encouraged use of hydroxyzine and one or more of these non-pharmacologic interventions to most appropriately treat patient's anxiety. MD prescribed melatonin for sleep. Patient, his MOC and MOC's friend all agreed this was the best approach. 4. Patient scored 1 on his CIWA. Will discontinue after another 24h if no evidence of w/d without the PRN Ativan. 5. Likely to discharge tomorrow if family is able to finalize aftercare plan. Strongly encourage MOC to make an appointment for either [place] or with [facility] for intake. That way, whichever program she chooses can suggest more appropriate level of care and MOC can choose based on the specific information each program can provide her. Patient could be discharged directly from hospital to an intake appt if possible. Subjective: Met with patient, his MOC and MOC's friend, with RN, Michelle, present. See Plan for discussion regarding recent med changes and MD's concerns about using Ativan to manage anxiety, and recommendations for more effective options with less of cross-over addiction. Patient and his family agreed with this plan. Patient continues to deny any thoughts, plan or intent to harm himself. He denies AH/VH, and there is no evidence of paranoia or delusions. Objective: Vital Signs Temp Pulse Resp BP Pulse Ox 36.6 C 76 12 132/72 H 98 12/17/16 08:54 12/17/16 08:54 12/17/16 08:54 12/17/16 08:54 12/17/16 08:54 MSE: Calm, cooperative, polite, seated on bed in shorts and T-shirt, no restlessness or fidgeting. His MOC and MOC's friend are seated in chairs. Affect : Euthymic Mood: "OK" TP: Linear, goal-directed TC: Denies any AH/VH, no evidence of psychosis, denies any SI/HI Insight/Judgment: Fair - Time Spent With Patient Time Spent With Patient: 30" - Pending Discharge Pending Discharge Within 24 Hours: Yes Pending Discharge Date: 12/18/16 (If aftercare plan is finalized. ) Pending Discharge Time: 12:00 ICD10 Worksheet Patient Problems: Problems Problem Status Onset Alcohol use disorder, severe, dependence Acute Substance induced mood disorder Acute Alcohol dependence Active Depression - Depressive disorder Active Cardiopulmonary arrest Acute Cellulitis Acute Hanging Acute - ICD10 Problem Qualifiers (1) Alcohol use disorder, severe, dependence (2) Substance induced mood disorder
[2016-12-17 19:39] VITALS: PULSE 68; RESP 18
[2016-12-17] MEDS: MELATONIN 3 MG TAB PO PRN (22:01)
[2016-12-18 06:07] VITALS: BP 131/74; TEMP 97.6; O2SAT 97
[2016-12-18] MEDS: MULTIVITAMINS 1 EACH TAB PO SCH (08:23)
[2016-12-18] MEDS: THIAMINE HCL 100 MG TAB PO SCH (08:23)
[2016-12-18] MEDS: FOLIC ACID 1 MG TAB PO SCH (08:23)
[2016-12-18] MEDS: SERTRALINE HCL 25 MG TAB PO SCH (08:23)
[2016-12-18] MEDS: NICOTINE POLACRILEX 2 MG GUM B PRN ×3 (08:24→13:49)
[2016-12-18] MEDS: NICOTINE 21 MG/24 HR PATCH TD SCH (08:27)
[2016-12-18] MEDS: hydrOXYzine HCL 25 MG TAB PO PRN (10:44)
--- NOTE | 2016-12-18 19:16 | BDS ---
[f rep st] BEHAVIORAL HEALTH DISCHARGE SUMMARY REASON FOR ADMISSION: Patient is a 26-year-old single man initially admitted to [facility] ICU Trauma Service on December 11 following a near lethal suicide attempt by hanging. A pparently hikers found him near the [place] and contacted EMS. Duration of hanging was unclea r but he was reportedly initially noted to be asystolic and had suffered a brief cardiac arrest and was revived with 12 chest compressions. He was also noted to be intoxicated with alcohol with a blo od alcohol level of 264. He was monitored overnight in the ICU, had no complications and was admitt ed to inpatient psychiatry on 12/12/2016 on a 72 hour mental health hold after medical clearance and evaluation by [facility] in the ICU. Initial psychiatric evaluation indicated the patient had recently become homeless and unemployed hav ing been evicted from [facility] in [place], [place], 6 days ago due to not paying rent. He had also resumed drinking; therefore, he returned to [place] and had been living on the streets . Family attempted to not be enabling as such patterns of behaviors had occurred before. Upon collateral interview, mother and brother stated patient left a well written suicide note statin g very clearly that he was planning to , that he was sorry and he loves them. Family also stated the patient was initially upset that he did not . They are very relieved he did not . Appare ntly, patient wrote a suicide note while sober and researched ways to kill himself. He reported fee ling suicidal for a couple of days prior to his attempt but waited until he received his last payche ck needing money to purchase what he needed for the suicide attempt and wanting to spend his last da y enjoying the day including going swimming. ADMITTING DIAGNOSES: Are as follows: 1. Major depressive disorder, recurrent, severe, status post near lethal suicide attempt by hanging . 2. Rule out substance induced mood disorder. 3. Alcohol use disorder, severe. 4. Stimulant use disorder, unspecified. 5. Psychosocial stressors include homelessness, unemployment, limited social support and financial. ADMISSION PHYSICAL EXAMINATION: Was performed by Dr. Danial Moore. Please see his H and P for d etails. ADMISSION LABS: From the ICU are as follows: White cell count was 5.86, hemoglobin was 15.6, hemat ocrit was 43.7, platelet count was 182, PT was 13.5, INR was 1.04, D-dimer was less than 0.27, sodiu m was 146, potassium was 4.0, chloride was 112, BUN was 9, creatinine was 0.9, glucose was 103, calc ium was 8.9. Cholesterol was 156, LDL cholesterol was 95, VLDL cholesterol was 23, TSH was 1.07, ur ine tox screen was negative for all drugs of abuse. Blood alcohol level was 264. Acetaminophen and salicylate levels were undetectable. Serology came back, patient was reactive for hepatitis C, negative for hep B, and hep A. [facility]. He was placed on a CIWA by Dr. Gagnon. He was also given hydroxyzine for anxiety. He was started on Zoloft 25 mg tammy ly for depression. There was a family meeting on 12/15/2016, present were treating psychiatrist, Dr. Zambrano, the patient' s mother, mother's friend who works in the medical field, healthcare project manager Pramod and patient's RN, Bijan rosa, and the P is on [employer]. Patient stated he would prefer to see a psych MD and an indiv idual therapist and mother felt strongly the patient will be under "too much pressure" if he returne d to his normal life and might not be safe living in her house with limited supervision. She said s he really wanted him to be in a residential facility where he "did not have to worry" about the stre ssors of daily life and would receive intensive treatment. Patient said his mother was "probably ri ght" and if that is what she wanted him to do then he would agree to it. Patient repeated that he w as no longer feeling hopeless and had no thoughts, plan or intent to hurt himself. He says he felt before his suicide attempt that his family "didn't care about me" but now he knew "they did" and was much more hopeful. Patient said that now that he knows that his family cares about him and that hi s mother is willing to let him move back into her house, he feels more hopeful and is not having any thoughts of suicide. MD discussed various levels of care and treatment options at length, including the pros and cons of residential versus IOP and outpatient. [facility] would be able to offer treatment through [facility] or their TRT program. Mother specifically said she did not want patient going to [facility] so was opened to hearing more about TRT. Pramod provided mother with brochures for several different residen tia facilities in [place], [place] and [place]. Mother said she would contact them today and c piero Benavidez tomorrow with an update. Over the subsequent 2 days, mother reported that she had attempted to contact several different faci lities but that for the most part, those facilities were too expensive or they were located in areas that she did not approve of. Therefore, patient and his mother decided that IOP might be a more ap propriate choice and that was the plan of action although mother said that she was still looking int o some facilities. She wanted to check out [facility] because they had both residential and IOP prog katia but the MD and Hostess Party Sales Representative encouraged the mother to make an intake appointment at [facility] so that at least the patient would have something in place upon discharge that he could go and be evaluated and they may be even able to get him in to their IOP program as a bridge program but fabiola blandon had not done that despite the healthcare project manager and MD's recommendation. The mom and the patient b oth stated that they were willing to follow up with P and get some information about the EOP progr am that was offered through [facility] and that that sounded like that was going to be the most likely foll owup plan. So it was agreed between the patient and his family, the healthcare project manager and the MD decided that it was appropriate to discharge the patient on Wednesday12/18/2016 and that the patient would be dischar elliott on Zoloft for his depression, hydroxyzine for his mood. He wanted to follow up with [facility] for Neelam itrol injection which he says he has had in the past and healthcare project manager reviewed extensively with the patient and with his mother options for interventions immediately upon discharge. The patient c an go to [facility] on Wednesday night where they do climbing and other physical activities. I t is a sober, active community. Patient says that he has participated in their programs in the past and likes them very much and he knows where they meet and he knows that they meet on Wednesday. Patient also agreed to go to AA meetings over the weekend, Wednesday and Wednesday post discharge and then he has a followup intake appointment at [facility] at 11 a.m. on Wednesday, 12/21 to tom prince medication management, possibly getting a Vivitrol injection and possibly doing their EOP pro gram. Meanwhile, mother said that she was still looking into different options for [facility] and that she was still considering other IOP options but said that she would follow up with cinthya thurston on her own. CONDITION ON DISCHARGE: Patient is stable. His affect is euthymic. His mood he says is "great". Patient denies any thoughts, plans or intent to hurt himself or to hurt anyone else. States he is f eeling much more hopeful and optimistic. DISCHARGE MEDICATIONS: Include sertraline 50 mg p.o. daily, hydroxyzine 25 mg p.o. b.i.d. p.r.n. fo r anxiety. Melatonin 3 mg p.o. at bedtime p.r.n. for sleep and a multivitamin. DISCHARGE DIAGNOSES: Are as follows: 1. Alcohol dependence severe. 2. Substance induced mood disorder. 3. Stimulant use disorder, in remission. 4. Psychosocial stressors include unemployed, moving back in with his mother because he does not rajan ve his own residence, lack of social support, dealing with addictions and recovery and making a plan for Sober Living. DISPOSITION: Patient left hospital with his mom and then followup. [facility]. Patient states that he will attend AA meetings over and was given information about their locations and he has an [facility] intake appointment at 11 a.m. on Wednesday12/21/2016. The healthcare project manager gave his mother contact information for the direct or of the EOP program which is the extensive outpatient program. Her name is Isha. Mom said that she would get in touch with her directly or discuss options for intensive outpatient at the intake a ppointment on Wednesday morning and patient states that he would like to get Vivitrol injections throug h [facility]. LEGAL COURSE: Patient was converted to voluntary status with the expiration of his M1 hold. /[id number]/MODL
== END 2016-12-18 16:05 | disposition home or self-care (01) | DRG 885 ==
LOC: BBEH 19:10
PROVIDERS: ADMIT Specialist; ATTEND Specialist
DX: F33.2 Major depressive disorder, recurrent severe without psychotic features (principal); Z91.5 Personal history of self-harm; F10.94 Alcohol use, unspecified with alcohol-induced mood disorder; F14.90 Cocaine use, unspecified, uncomplicated; Z59.0 Homelessness; Z56.0 Unemployment, unspecified